=== PATIENT | female | born 1935 | race Caucasian/White ===

== ENCOUNTER 2018-06-06 07:42 | Emergency (ER) | payer MEDICARE, MEDICAID ==
[2018-06-06 07:42] VITALS: BMI 31.8
[2018-06-06 07:51] VITALS: RESP 20
[2018-06-06] MEDS ORDERED: Naproxen 550 mg Tab PO STA (08:18)
[2018-06-06] MEDS ORDERED: Naproxen 550 mg Tab PO ONE (08:31)
--- NOTE | 2018-06-06 08:53 | RAD ---
Date of service: 06/06/2018 PROCEDURE: Radiographs of the Left Forearm HISTORY: LEFT FOREARM PAIN COMPARISON: None available. TECHNIQUE: Frontal and lateral views obtained. FINDINGS: BONES: No fracture or destructive lesion. JOINT SPACES: Minimal arthrosis elbow joint- trace olecranon spurring apparent Radiocarpal joint space narrowing inferred as well OTHER FINDINGS: Well corticated ossifications calcifications inferior to medial humeral epicondyles calcific tendinosis here pad oval with this. Osseous avulsions in the differential. The subcutaneous soft tissues appear slightly more prominent along the medial aspect of the elbow joint clinical correlation needed IMPRESSION: No fracture or lytic lesion. 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
--- NOTE | 2018-06-06 08:54 | RAD ---
PROCEDURE: Left Hand Radiographs. HISTORY: LEFT HAND PAIN COMPARISON: None. FINDINGS: BONES: Normal. No fracture. JOINTS: Diffuse joint space narrowing- distal interphalangeal joints. Mild degenerate changes compatible with this. No erosions or prominent spurs seen. Probable carpal-first metacarpal joint arthrosis as well. SOFT TISSUES: Normal. OTHER FINDINGS: None. IMPRESSION: Mild arthrosis -as detailed above. No fracture, lytic lesion or erosions seen.
--- NOTE | 2018-06-06 09:03 | C.PDOC ---
History Of Present Illness 82-year-old femal presents to the emergency department with complaints of left forearm and left arm pain. She also reports her 4th left digit is stuck in flexion for the past 2-3 days. Patient denies trauma, fever, rash, sensory changes or any other associated symptoms. Time Seen by Provider: 06/06/18 07:58 Chief Complaint (Nursing): Upper Extremity Problem/Injury History Per: Patient History/Exam Limitations: no limitations Current Symptoms Are (Timing): Still Present Quality: "Pain" Severity: Moderate Exacerbating Factor(s): Movement Past Medical History Reviewed: Historical Data, Nursing Documentation, Vital Signs Vital Signs: Last Vital Signs Temp 98.6 F 06/06/18 09:33 Pulse 69 06/06/18 09:33 Resp 20 06/06/18 09:33 BP 133/71 06/06/18 09:33 Pulse Ox 98 06/06/18 13:23 - Medical History PMH: Arthritis, Diverticulitis, Deep Vein Thrombosis (PVD), Gastritis, HTN, Hypercholesterolemia Surgical History: Appendectomy [facility] Procedures CORONAR ARTERIOGR-2 CATH (11/21/14) CORONARY ARTERIOGRAM NEC (11/21/14) INJECT ANTICOAGULANT (11/21/14) INJECT/INFUSE NEC (11/21/14) INSERTION OF ONE VASCULAR STENT (11/21/14) INSRT OF DRUG-ELUTING CORON ARTERY STENTS(S) (11/21/14) LEFT HEART CARDIAC CATH (11/21/14) LT HEART ANGIOCARDIOGRAM (11/21/14) PERCUTANEOUS TRANSLUMINAL CORONARY ANGIOPLASTY [PTCA] (11/21/14) PROCEDURE ON SINGLE VESSEL (11/21/14) Family History: States: No Known Family Hx - Social History Hx Tobacco Use: No Hx Alcohol Use: No Hx Substance Use: No - Immunization History Hx Tetanus Toxoid Vaccination: Yes Hx Influenza Vaccination: Yes (2017) Hx Pneumococcal Vaccination: Yes Review Of Systems Constitutional: Negative for: Fever, Chills Cardiovascular: Negative for: Chest Pain Respiratory: Negative for: Shortness of Breath Gastrointestinal: Negative for: Nausea, Vomiting Musculoskeletal: Positive for: Arm Pain (left) Skin: Negative for: Rash Neurological: Negative for: Weakness, Numbness Physical Exam - Physical Exam Appears: Well, Non-toxic, No Acute Distress Skin: Normal Color, Warm, Dry, No Rash Head: Atraumatic, Normacephalic Eye(s): bilateral: Normal Inspection Oral Mucosa: Moist Cardiovascular: Rhythm Regular Respiratory: Normal Breath Sounds, No Rales, No Rhonchi, No Wheezing Extremity: Capillary Refill (<2 seconds all digits ), No Deformity, No Swelling , Other (Mild tenderness to palpation at left anterior forearm. +palpable ganglion cyst at distal 4th metacarpal, 4th digit in flexion. Normal sensation in hand. No rashes. ) Extremity: Bilateral: Normal Color And Temperature Pulses: Left Radial: Normal, Right Radial: Normal Neurological/Psych: Oriented x3, Normal Sensation Gait: Steady ED Course And Treatment O2 Sat by Pulse Oximetry: 98 (RA) Pulse Ox Interpretation: Normal - Other Rad left hand/forearm Xrays X-Ray: Interpreted by Me, Viewed By Me (arthritic changes, no fx/dislocation) Progress Note: Xrays of left hand and forearm ordered and reviewed. Patient given PO Naprosyn in ED. Reevaluation Time: 09:05 Reassessment Condition: Improved (Patient reassessed, is resting comfortably, pain has improved. Xrays neg for acute bondy injuries. Explained to patient symptoms are likely due to tendonitis/ganglion cyst. She was instructed to follow up with hand surgery/ortho within 1 week. Rx for naprosyn given. She understands she should return to ED if symptoms worsen.) Disposition Counseled Patient/Family Regarding: Studies Performed, Diagnosis, Need For Followup, Rx Given - Disposition Referrals: Emmanuel Birmingham MD [Staff Provider] - [facility] [place] [Outside] Disposition: HOME/ ROUTINE Disposition Time: 09:05 Condition: STABLE Additional Instructions: FOLLOW UP WITH HAND SURGERY/ORTHOPEDICS WITHIN 1 WEEK USE PAIN MEDICATION NEEDED RETURN TO EMERGENCY ROOM IF SYMPTOMS WORSEN SEGUIMIENTO CON CIRUGA DE LA MANO / ORTOPEDIA DENTRO DE 1 SEMANA USE MEDICAMENTO PARA DOLOR SEGN SEA NECESARIO REGRESE AL JOSE DE EMERGENCIA SI LOS SNTOMAS EMPEORAN Prescriptions: Naproxen 375 mg PO BID PRN #20 tablet PRN Reason: pain Instructions: Ganglion Cyst (DC), Trigger Finger (DC) Forms: [employer] (Slovak) Print Language: IRISH - POA Present On Arrival: None - Clinical Impression Clinical Impression: Trigger finger, left ring finger, Ganglion cyst, Tendonitis - Scribe Statement The provider has reviewed the documentation as recorded by the Scribe (Jelani Gonzales) All medical record entries made by the Scribe were at my direction and personally dictated by me. I have reviewed the chart and agree that the record accurately reflects my personal performance of the history, physical exam, medical decision making, and the department course for this patient. I have also personally directed, reviewed, and agree with the discharge instructions and disposition.
[2018-06-06 09:34] VITALS: BP 133/71; PULSE 69; TEMP 98.6
[2018-06-06 09:49] VITALS: O2SAT 98
== END 2018-06-06 09:41 | disposition home or self-care (01) ==
LOC: C.ER 07:42
DX: M77.9 Enthesopathy, unspecified (principal); M67.442 Ganglion, left hand; M65.342 Trigger finger, left ring finger

== ENCOUNTER 2018-12-11 19:45 | Inpatient (IN) | payer MEDICARE, MEDICAID ==
[2018-12-11 19:46] VITALS: BMI 31.8
[2018-12-11] MEDS ORDERED: Sodium Chloride 0.9% 1,000 ML IV ONE (20:13)
--- NOTE | 2018-12-11 20:13 | C.PDOC ---
History Of Present Illness 83 year old female presents to the ED c/o elevated blood sugar, polyuria and polydipsia for the past 3 weeks. Patient reports she is not taking any diabetic medications now. Patient denies fever, chills, nausea, vomit, diarrhea, CP, SOB, rash, weakness, numbness. Time Seen by Provider: 12/11/18 20:12 Chief Complaint (Nursing): High Blood Sugar History Per: Patient History/Exam Limitations: no limitations Onset/Duration Of Symptoms: Days Current Symptoms Are (Timing): Still Present Severity: Moderate Pain Scale Rating Of: 4 Current Diabetic Medications: None Associated Infectious Symptoms: Urinary Frequency Treatment Prior To Provider Evaluation: None Recent travel outside of the [place]: No Additional History Per: Patient Past Medical History Reviewed: Historical Data, Nursing Documentation, Vital Signs Vital Signs: Last Vital Signs Temp 97.9 F 12/11/18 19:58 Pulse 92 H 12/11/18 19:58 Resp 20 12/11/18 19:58 BP 145/68 12/11/18 19:58 Pulse Ox 99 12/11/18 19:58 - Medical History PMH: Arthritis, Diverticulitis, Deep Vein Thrombosis (PVD), Gastritis, HTN, Hypercholesterolemia Surgical History: Appendectomy - [facility] Procedures CORONAR ARTERIOGR-2 CATH (11/21/14) CORONARY ARTERIOGRAM NEC (11/21/14) INJECT ANTICOAGULANT (11/21/14) INJECT/INFUSE NEC (11/21/14) INSERTION OF ONE VASCULAR STENT (11/21/14) INSRT OF DRUG-ELUTING CORON ARTERY STENTS(S) (11/21/14) LEFT HEART CARDIAC CATH (11/21/14) LT HEART ANGIOCARDIOGRAM (11/21/14) PERCUTANEOUS TRANSLUMINAL CORONARY ANGIOPLASTY [PTCA] (11/21/14) PROCEDURE ON SINGLE VESSEL (11/21/14) Family History: States: Unknown Family Hx - Social History Hx Tobacco Use: No Hx Alcohol Use: No Hx Substance Use: No - Immunization History Hx Tetanus Toxoid Vaccination: Yes Hx Influenza Vaccination: Yes (2016) Hx Pneumococcal Vaccination: Yes Review Of Systems Constitutional: Negative for: Fever, Chills Eyes: Negative for: Redness ENT: Negative for: Throat Pain Cardiovascular: Negative for: Chest Pain Respiratory: Negative for: Cough, Shortness of Breath Gastrointestinal: Negative for: Nausea, Vomiting, Abdominal Pain Genitourinary: Positive for: Frequency Musculoskeletal: Negative for: Back Pain Skin: Negative for: Rash Neurological: Negative for: Weakness, Numbness, Headache, Dizziness Psych: Negative for: Anxiety Physical Exam - Physical Exam Appears: Non-toxic, No Acute Distress Skin: Warm, Dry Head: Normacephalic Eye(s): bilateral: Normal Inspection Oral Mucosa: Dry Neck: Supple Chest: Symmetrical Cardiovascular: Rhythm Regular Respiratory: No Rales, No Rhonchi, No Wheezing Gastrointestinal/Abdominal: Soft, Tenderness (slight LUQ discomfort), Distention, No Guarding, No Rebound Back: No CVA Tenderness Extremity: Pedal Edema (trace bilaterally), Capillary Refill (< 2 seconds) Extremity: Bilateral: Atraumatic, Normal Color And Temperature, Normal ROM Pulses: Left Dorsalis Pedis: Normal, Right Dorsalis Pedis: Normal Neurological/Psych: Oriented x3 Gait: Steady ED Course And Treatment - Laboratory Results Result Diagrams: 12/11/18 20:40 12/11/18 20:40 ECG: Interpreted By Me, Viewed By Me O2 Sat by Pulse Oximetry: 99 (ON RA) Pulse Ox Interpretation: Normal Progress Note: Plan: - Labs. - VBG. - IV fluids. - UA Disposition Discussed With DrBret: Lola Reyes Comment: accepted the pt on his service and took over the care at 9:58 PM Doctor Will See Patient In The: Hospital Counseled Patient/Family Regarding: Studies Performed, Diagnosis - Disposition Disposition: HOSPITALIZED Disposition Time: 20:13 Condition: FAIR Forms: [facility] (Portuguese) - POA Present On Arrival: Poor Glycemic Control - Clinical Impression Clinical Impression: Hyperglycemia, Urinary tract infection, Poorly controlled diabetes mellitus - Scribe Statement The provider has reviewed the documentation as recorded by the Scribe Sukh Gonzales All medical record entries made by the Scribe were at my direction and personally dictated by me. I have reviewed the chart and agree that the record accurately reflects my personal performance of the history, physical exam, medi brian decision making, and the department course for this patient. I have also personally directed, reviewed, and agree with the discharge instructions and disposition. Decision To Admit - Pt Status Changed To: Hospital Disposition Of: Inpatient - Admit Certification Admit to Inpatient:: After my assessment, the patient will require hospitalization for at least two midnights. This is because of the severity of symptoms shown, intensity of services needed, and/or the medical risk in this patient being treated as an outpatient. - InPatient: Physician Admission Certification: I certify that this patient requires 2 or more midnights of care for the following reason:: After my assessment, the patient will require hospitalization for at least two midnights. This is because of the severity of symptoms shown, intensity of services needed, and/or the medical risk in this patient being treated as an outpatient. - . Bed Request Type: Regular Admitting Physician: Lola Reyes Patient Diagnosis: Hyperglycemia, Urinary tract infection, Poorly controlled diabetes mellitus
[2018-12-11 20:48] LABS: BASO # 0.1 K/uL (0.0-0.2); EOS # 0.2 K/uL (0.0-0.7); EOS % 2.6 % (0.0-4.0); HEMOGLOBIN 12.3 g/dL (11.0-16.0); LYMPH # 2.9 K/uL (1.0-4.3); LYMPH % 38.7 % (20.0-40.0); MEAN CELL VOLUME 87.7 fL (81.0-99.0); MEAN CORPUSCULAR HEMOGLOBIN 28.1 pg (27.0-31.0); MEAN PLATELET VOLUME 8.4 fL (7.2-11.7); MONO # 0.8 K/uL (0.0-0.8); MONO % 10.6 % (0.0-10.0); NEUT # 3.6 K/uL (1.8-7.0); NEUT % 47.1 % (50.0-75.0); NRBC % 0.1 % (0.0-2.0); RBC 4.38 Mil/uL (3.80-5.20); RED CELL DISTRIBUTION WIDTH 12.1 % (11.5-14.5); WHITE BLOOD COUNT 7.6 K/uL (4.8-10.8)
[2018-12-11 20:49] LABS: VENOUS BLOOD GAS BASE EXCESS -7.9 mmol/L (0.0-2.0); VENOUS BLOOD GAS PCO2 39 mmHg (40-60); VENOUS BLOOD GAS PO2 102 mm/Hg (30-55); VENOUS BLOOD PH 7.28 (7.32-7.43)
[2018-12-11 21:08] LABS: SQUAMOUS EPITHIAL 2 /hpf (0-5); URINE BACTERIA FEW (<OCC); URINE BILIRUBIN NEGATIVE (NEGATIVE); URINE BLOOD NEGATIVE (NEGATIVE); URINE CLARITY Hazy (Clear); URINE COLOR Yellow (YELLOW); URINE GLUCOSE (UA) 3+ mg/dL (Normal); URINE LEUKOCYTE ESTERASE 1+ Leu/uL (Negative); URINE PROTEIN NEGATIVE (NEGATIVE); URINE UROBILINOGEN NORMAL mg/dL (0.2-1.0)
[2018-12-11 21:21] LABS: ALB/GLOB RATIO 1.3 (1.0-2.1); ALBUMIN 4.3 g/dL (3.5-5.0); CALCIUM 9.6 mg/dl (8.6-10.4)
[2018-12-11] MEDS: (Lantus) Insulin Glargine, Recombinant SC SCH (22:18)
[2018-12-11] MEDS ORDERED: (Lantus) Insulin Glargine, Recombinant SC ONE (22:21)
[2018-12-11] MEDS ORDERED: (Novolin R) Insulin Human Regular 100 units/ml vial ONE (22:31)
[2018-12-11] MEDS: (Novolin R) Insulin Human Regular 100 units/ml vial SC SCH (22:31)
--- NOTE | 2018-12-11 22:36 | CP.PCM.HP ---
Past Patient History - Past Medical History & Family History Past Medical History?: Yes - Past Social History Smoking Status: Never Smoked - CARDIAC Hx Hypercholesterolemia: Yes Hx Hypertension: Yes - PULMONARY Hx Respiratory Disorders: Yes Other/Comment: H/O SOB - NEUROLOGICAL Hx Dizziness: Yes (OCCASIONALLY) - HEENT Hx Glaucoma: Yes (BILATERAL) - MUSCULOSKELETAL/RHEUMATOLOGICAL Hx Arthritis: Yes - GASTROINTESTINAL Hx Diverticulitis: Yes Hx Gastritis: Yes - PSYCHIATRIC Hx Substance Use: No - SURGICAL HISTORY Hx Appendectomy: Yes - ANESTHESIA Hx Anesthesia: Yes Hx Anesthesia Reactions: No Hx Malignant Hyperthermia: No Meds Allergies/Adverse Reactions: Allergies Allergy/AdvReac Type Severity Reaction Status Date / Time No Known Allergies Allergy Verified 12/11/18 20:03 Results - Vital Signs Recent Vital Signs: Last Vital Signs Temp 97.9 F 12/11/18 19:58 Pulse 92 H 12/11/18 19:58 Resp 20 12/11/18 19:58 BP 145/68 12/11/18 19:58 Pulse Ox 99 12/11/18 22:00 - Labs Result Diagrams: 12/11/18 20:40 12/11/18 20:40 Labs: Laboratory Results - last 24 hr 12/11/18 12/11/18 12/11/18 19:57 20:35 20:40 WBC 7.6 RBC 4.38 Hgb 12.3 Hct 38.4 MCV 87.7 D MCH 28.1 MCHC 32.0 L RDW 12.1 Plt Count 201 MPV 8.4 Neut % (Auto) 47.1 L Lymph % (Auto) 38.7 [place] % (Auto) 10.6 H Eos % (Auto) 2.6 Baso % (Auto) 1.0 Neut # (Auto) 3.6 Lymph # (Auto) 2.9 [place] # (Auto) 0.8 Eos # (Auto) 0.2 Baso # (Auto) 0.1 pO2 102 H VBG pH 7.28 L VBG pCO2 39 L VBG HCO3 18.8 VBG Total CO2 19.5 L VBG O2 Sat (Calc) 99.7 H VBG Base Excess -7.9 L VBG Potassium 3.0 L Sodium 145.0 Chloride 112.0 H Glucose 290 H Lactate 3.0 H Potassium Carbon Dioxide Anion Gap BUN Creatinine Est GFR ( Amer) Est GFR (Non-Af Amer) POC Glucose (mg/dL) 460 H* Random Glucose Hemoglobin A1c Calcium Total Bilirubin AST ALT Alkaline Phosphatase Total Protein Albumin Globulin Albumin/Globulin Ratio Venous Blood Potassium 3.0 L Urine Color Urine Clarity Urine pH Ur Specific [place] Urine Protein Urine Glucose (UA) Urine Ketones Urine Blood Urine Nitrate Urine Bilirubin Urine Urobilinogen Ur Leukocyte Esterase Urine WBC (Auto) Urine RBC (Auto) Ur Squamous Epith Cells Urine Bacteria B-Hydroxybutyrate 12/11/18 12/11/18 12/11/18 20:40 20:40 20:46 WBC RBC Hgb Hct MCV MCH MCHC RDW Plt Count MPV Neut % (Auto) Lymph % (Auto) [place] % (Auto) Eos % (Auto) Baso % (Auto) Neut # (Auto) Lymph # (Auto) [place] # (Auto) Eos # (Auto) Baso # (Auto) pO2 VBG pH VBG pCO2 VBG HCO3 VBG Total CO2 VBG O2 Sat (Calc) VBG Base Excess VBG Potassium Sodium 133 Chloride 94 L Glucose Lactate Potassium 5.2 Carbon Dioxide 29 Anion Gap 15 BUN 34 H Creatinine 2.2 H Est GFR ( Amer) 26 Est GFR (Non-Af Amer) 21 POC Glucose (mg/dL) Random Glucose 456 H* D Hemoglobin A1c 12.5 H Calcium 9.6 Total Bilirubin 0.7 AST 40 H ALT 31 Alkaline Phosphatase 75 Total Protein 7.7 Albumin 4.3 Globulin 3.4 Albumin/Globulin Ratio 1.3 Venous Blood Potassium Urine Color Yellow Urine Clarity Hazy Urine pH 5.0 Ur Specific [place] 1.024 Urine Protein Negative Urine Glucose (UA) 3+ H Urine Ketones Negative Urine Blood Negative Urine Nitrate Negative Urine Bilirubin Negative Urine Urobilinogen Normal Ur Leukocyte Esterase 1+ H Urine WBC (Auto) 40 H Urine RBC (Auto) 3 Ur Squamous Epith Cells 2 Urine Bacteria Few H B-Hydroxybutyrate 0.27 12/11/18 22:18 WBC RBC Hgb Hct MCV MCH MCHC RDW Plt Count MPV Neut % (Auto) Lymph % (Auto) [place] % (Auto) Eos % (Auto) Baso % (Auto) Neut # (Auto) Lymph # (Auto) [place] # (Auto) Eos # (Auto) Baso # (Auto) pO2 VBG pH VBG pCO2 VBG HCO3 VBG Total CO2 VBG O2 Sat (Calc) VBG Base Excess VBG Potassium Sodium Chloride Glucose Lactate Potassium Carbon Dioxide Anion Gap BUN Creatinine Est GFR ( Amer) Est GFR (Non-Af Amer) POC Glucose (mg/dL) 395 H Random Glucose Hemoglobin A1c Calcium Total Bilirubin AST ALT Alkaline Phosphatase Total Protein Albumin Globulin Albumin/Globulin Ratio Venous Blood Potassium Urine Color Urine Clarity Urine pH Ur Specific [place] Urine Protein Urine Glucose (UA) Urine Ketones Urine Blood Urine Nitrate Urine Bilirubin Urine Urobilinogen Ur Leukocyte Esterase Urine WBC (Auto) Urine RBC (Auto) Ur Squamous Epith Cells Urine Bacteria B-Hydroxybutyrate
[2018-12-11] MEDS: Sodium Chloride 0.9% 1,000 ML IV SCH (23:00)
[2018-12-12] MEDS ORDERED: Moxifloxacin IV 400mg/250ml NS 400 MG/250 ML BAG IVPB SCH (10:00)
[2018-12-12] MEDS ORDERED: Enoxaparin 40 mg Syringe SC SCH (10:00)
[2018-12-12] MEDS ORDERED: Pantoprazole 40 mg EC Tab PO SCH (10:00)
[2018-12-12 11:50] VITALS: RESP 20
[2018-12-12] MEDS: (Novolin R) Insulin Human Regular 100 units/ml vial SC SCH ×3 (12:13→21:39)
[2018-12-12] MEDS: Moxifloxacin IV 400mg/250ml NS 400 MG/250 ML BAG IVPB SCH (12:23)
[2018-12-12] MEDS: Enoxaparin 30 mg Syringe SC SCH (12:29)
--- NOTE | 2018-12-12 14:22 | CP.PCM.PN ---
Subjective - Date & Time of Evaluation Date of Evaluation: 12/12/18 Time of Evaluation: 09:15 - Subjective Subjective: clinically same Objective - Vital Signs/Intake and Output Vital Signs (last 24 hours): Temp Pulse Resp BP Pulse Ox 97.7 F 76 20 162/74 H 95 12/12/18 11:50 12/12/18 11:50 12/12/18 11:50 12/12/18 11:50 12/12/18 11:50 - Medications Medications: Current Medications Enoxaparin Sodium (Lovenox) 30 mg SC DAILY [facility] Last Admin: 12/12/18 12:29 Dose: 30 mg Glimepiride (Amaryl) 2 mg PO BID [facility] Sodium Chloride (Sodium Chloride 0.9%) 1,000 mls @ 100 mls/hr IV .Q10H [facility] Last Admin: 12/11/18 23:00 Dose: 100 mls/hr Moxifloxacin HCl (Avelox Iv 400mg/250ml Ns) 400 mg in 250 mls @ 167 mls/hr IVPB Q24H [facility]; Protocol Last Admin: 12/12/18 12:23 Dose: 167 mls/hr Insulin Glargine (Lantus) 20 unit SC HS [facility] Last Admin: 12/11/18 22:18 Dose: 20 units Insulin Human Regular (Novolin R) 0 unit SC ACHS [facility]; Protocol Last Admin: 12/12/18 12:13 Dose: 8 units Pantoprazole Sodium (Protonix Ec Tab) 40 mg PO DAILY [facility] Last Admin: 12/12/18 12:28 Dose: 40 mg - Labs Labs: 12/11/18 20:40 12/11/18 20:40 - Constitutional Appears: Well - Head Exam Head Exam: ATRAUMATIC, NORMAL INSPECTION, NORMOCEPHALIC - Eye Exam Eye Exam: EOMI, Normal appearance, PERRL Pupil Exam: NORMAL ACCOMODATION, PERRL - ENT Exam ENT Exam: Mucous Membranes Moist, Normal Exam - Neck Exam Neck Exam: Full ROM, Normal Inspection. absent: Lymphadenopathy - Respiratory Exam Respiratory Exam: Decreased Breath Sounds - Cardiovascular Exam Cardiovascular Exam: REGULAR RHYTHM, +S1, +S2 - GI/Abdominal Exam GI & Abdominal Exam: Soft, Diminished Bowel Sounds - Rectal Exam Rectal Exam: Deferred
[2018-12-12] MEDS: Sodium Chloride 0.9% 1,000 ML IV SCH ×2 (18:15→20:40)
[2018-12-12] MEDS: (Lantus) Insulin Glargine, Recombinant SC SCH (21:39)
[2018-12-13] MEDS: Sodium Chloride 0.9% 1,000 ML IV SCH ×3 (04:15→23:30)
[2018-12-13] MEDS: (Novolin R) Insulin Human Regular 100 units/ml vial SC SCH ×4 (07:46→22:19)
[2018-12-13 08:26] LABS: BASO # 0.1 K/uL (0.0-0.2); BASO % 0.8 % (0.0-2.0); EOS # 0.3 K/uL (0.0-0.7); EOS % 3.4 % (0.0-4.0); HEMOGLOBIN 11.4 g/dL (11.0-16.0); LYMPH # 4.7 K/uL (1.0-4.3); LYMPH % 55.7 % (20.0-40.0); MEAN CELL VOLUME 87.6 fL (81.0-99.0); MEAN CORPUSCULAR HEMOGLOBIN 28.2 pg (27.0-31.0); MEAN CORPUSCULAR HGB CONC 32.2 g/dL (33.0-37.0); MEAN PLATELET VOLUME 8.9 fL (7.2-11.7); MONO # 0.8 K/uL (0.0-0.8); MONO % 9.7 % (0.0-10.0); NEUT # 2.5 K/uL (1.8-7.0); NEUT % 30.4 % (50.0-75.0); NRBC % 0.1 % (0.0-2.0); RBC 4.05 Mil/uL (3.80-5.20); RED CELL DISTRIBUTION WIDTH 12.3 % (11.5-14.5); WHITE BLOOD COUNT 8.4 K/uL (4.8-10.8)
[2018-12-13 08:46] LABS: CALCIUM 8.1 mg/dl (8.6-10.4)
[2018-12-13] MEDS ORDERED: Ergocalciferol 50,000 Intl Units Cap PO SCH (10:00)
[2018-12-13] MEDS: Enoxaparin 30 mg Syringe SC SCH (10:04)
[2018-12-13] MEDS: Moxifloxacin IV 400mg/250ml NS 400 MG/250 ML BAG IVPB SCH (12:15)
[2018-12-13] MEDS ORDERED: Naproxen 275 mg Tab PO ONE (17:38)
--- NOTE | 2018-12-13 18:11 | CP.PCM.PN ---
Subjective - Date & Time of Evaluation Date of Evaluation: 12/13/18 Time of Evaluation: 09:15 - Subjective Subjective: clinically same Objective - Vital Signs/Intake and Output Vital Signs (last 24 hours): Temp Pulse Resp BP Pulse Ox 98.3 F 75 20 144/68 98 12/13/18 16:00 12/13/18 16:00 12/13/18 16:00 12/13/18 16:00 12/13/18 16:00 Intake and Output: 12/13/18 12/13/18 06:59 18:59 Intake Total 2119 1100 Balance 2119 1100 - Medications Medications: Current Medications Clopidogrel Bisulfate (Plavix) 75 mg PO DAILY [facility] Last Admin: 12/13/18 10:04 Dose: 75 mg Enoxaparin Sodium (Lovenox) 30 mg SC DAILY [facility] Last Admin: 12/13/18 10:04 Dose: 30 mg Ergocalciferol (Drisdol 50,000 Intl Units Cap) 1 cap PO QWK [facility] Last Admin: 12/13/18 10:03 Dose: 1 cap Famotidine (Pepcid) 20 mg PO DAILY [facility] Last Admin: 12/13/18 10:03 Dose: 20 mg Glimepiride (Amaryl) 2 mg PO BID [facility] Last Admin: 12/13/18 17:33 Dose: 2 mg Sodium Chloride (Sodium Chloride 0.9%) 1,000 mls @ 100 mls/hr IV .Q10H [facility] Last Admin: 12/13/18 10:07 Dose: 100 mls/hr Moxifloxacin HCl (Avelox Iv 400mg/250ml Ns) 400 mg in 250 mls @ 167 mls/hr IVPB Q24H [facility]; Protocol Last Admin: 12/13/18 12:15 Dose: 167 mls/hr Insulin Glargine (Lantus) 20 unit SC HS [facility] Last Admin: 12/12/18 21:39 Dose: 20 units Insulin Human Regular (Novolin R) 0 unit SC ACHS [facility]; Protocol Last Admin: 12/13/18 17:40 Dose: 4 units Lisinopril (Zestril) 10 mg PO DAILY [facility] Last Admin: 12/13/18 10:03 Dose: 10 mg - Labs Labs: 12/13/18 08:18 12/13/18 08:18 - Constitutional Appears: Well - Head Exam Head Exam: ATRAUMATIC, NORMAL INSPECTION, NORMOCEPHALIC - Eye Exam Eye Exam: EOMI, Normal appearance, PERRL Pupil Exam: NORMAL ACCOMODATION, PERRL - ENT Exam ENT Exam: Mucous Membranes Moist, Normal Exam - Neck Exam Neck Exam: Full ROM, Normal Inspection. absent: Lymphadenopathy - Respiratory Exam Respiratory Exam: Decreased Breath Sounds - Cardiovascular Exam Cardiovascular Exam: REGULAR RHYTHM, +S1, +S2 - GI/Abdominal Exam GI & Abdominal Exam: Soft, Diminished Bowel Sounds - Rectal Exam Rectal Exam: Deferred
[2018-12-13] MEDS: (Lantus) Insulin Glargine, Recombinant SC SCH (22:17)
[2018-12-14] MEDS: Sodium Chloride 0.9% 1,000 ML IV SCH ×2 (00:42→12:09)
[2018-12-14] MEDS: (Novolin R) Insulin Human Regular 100 units/ml vial SC SCH ×2 (07:42→11:23)
[2018-12-14 07:58] VITALS: TEMP 97.8
[2018-12-14] MEDS: Enoxaparin 30 mg Syringe SC SCH (09:09)
[2018-12-14] MEDS: Moxifloxacin IV 400mg/250ml NS 400 MG/250 ML BAG IVPB SCH (11:35)
--- NOTE | 2018-12-14 12:51 | CP.PCM.PN ---
Subjective - Date & Time of Evaluation Date of Evaluation: 12/14/18 Time of Evaluation: 08:45 - Subjective Subjective: clinically same Objective - Vital Signs/Intake and Output Vital Signs (last 24 hours): Temp Pulse Resp BP Pulse Ox 97.8 F 72 20 164/75 H 97 12/14/18 07:55 12/14/18 07:55 12/14/18 07:55 12/14/18 07:55 12/14/18 07:55 Intake and Output: 12/14/18 12/14/18 06:59 18:59 Intake Total 2070 Output Total 500 Balance 1570 - Medications Medications: Current Medications Clopidogrel Bisulfate (Plavix) 75 mg PO DAILY [facility] Last Admin: 12/14/18 09:09 Dose: 75 mg Enoxaparin Sodium (Lovenox) 30 mg SC DAILY [facility] Last Admin: 12/14/18 09:09 Dose: 30 mg Ergocalciferol (Drisdol 50,000 Intl Units Cap) 1 cap PO QWK [facility] Last Admin: 12/13/18 10:03 Dose: 1 cap Famotidine (Pepcid) 20 mg PO DAILY [facility] Last Admin: 12/14/18 09:09 Dose: 20 mg Glimepiride (Amaryl) 2 mg PO BID [facility] Last Admin: 12/14/18 09:09 Dose: 2 mg Sodium Chloride (Sodium Chloride 0.9%) 1,000 mls @ 100 mls/hr IV .Q10H [facility] Last Admin: 12/14/18 12:09 Dose: Not Given Moxifloxacin HCl (Avelox Iv 400mg/250ml Ns) 400 mg in 250 mls @ 167 mls/hr IVPB Q24H [facility]; Protocol Last Admin: 12/14/18 11:35 Dose: 167 mls/hr Insulin Glargine (Lantus) 20 unit SC HS [facility] Last Admin: 12/13/18 22:17 Dose: 20 units Insulin Human Regular (Novolin R) 0 unit SC ACHS [facility]; Protocol Last Admin: 12/14/18 11:23 Dose: 8 units Lisinopril (Zestril) 10 mg PO DAILY [facility] Last Admin: 12/14/18 09:09 Dose: 10 mg - Labs Labs: 12/13/18 08:18 12/13/18 08:18
--- NOTE | 2018-12-14 16:47 | CP.PCM.PN ---
Subjective - Date & Time of Evaluation Date of Evaluation: 12/14/18 Time of Evaluation: 16:47 - Subjective Subjective: alert, awake, no sob no acute distress. Objective - Vital Signs/Intake and Output Vital Signs (last 24 hours): Temp Pulse Resp BP Pulse Ox 97.8 F 72 20 164/75 H 97 12/14/18 07:55 12/14/18 07:55 12/14/18 07:55 12/14/18 07:55 12/14/18 07:55 Intake and Output: 12/14/18 12/14/18 06:59 18:59 Intake Total 2070 1280 Output Total 500 Balance 1570 1280 - Medications Medications: Current Medications Ciprofloxacin (Cipro) 500 mg PO BID [facility]; Protocol Clopidogrel Bisulfate (Plavix) 75 mg PO DAILY [facility] Last Admin: 12/14/18 09:09 Dose: 75 mg Enoxaparin Sodium (Lovenox) 30 mg SC DAILY [facility] Last Admin: 12/14/18 09:09 Dose: 30 mg Ergocalciferol (Drisdol 50,000 Intl Units Cap) 1 cap PO QWK [facility] Last Admin: 12/13/18 10:03 Dose: 1 cap Famotidine (Pepcid) 20 mg PO DAILY [facility] Last Admin: 12/14/18 09:09 Dose: 20 mg Glimepiride (Amaryl) 2 mg PO BID [facility] Last Admin: 12/14/18 09:09 Dose: 2 mg Insulin Glargine (Lantus) 10 unit SC HS [facility] Insulin Human Regular (Novolin R) 0 unit SC ACHS [facility]; Protocol Last Admin: 12/14/18 11:23 Dose: 8 units Lisinopril (Zestril) 10 mg PO DAILY [facility] Last Admin: 12/14/18 09:09 Dose: 10 mg Sitagliptin Phosphate (Januvia) 50 mg PO DAILY [facility] - Labs Labs: 12/13/18 08:18 12/13/18 08:18 Assessment and Plan - Assessment and Plan (Free Text) Assessment: 83 year old female admitted with newly diagnosed diabetes. Seen and examined, alert, ambulatory with assistance, no acute distress. Diabetic teaching given to the family, discussed with DR Abril Reyes, plan to discharge home in am on glimiperide and januvia. Glucometer and preescriptions given, advised blood sugar check bid and follow up with PMD in 1 week.
[2018-12-14 17:37] VITALS: BP 142/71; PULSE 67; O2SAT 96
[2018-12-14] MEDS ORDERED: (Lantus) Insulin Glargine, Recombinant SC SCH (22:00)
== END 2018-12-14 18:24 | disposition home or self-care (01) | DRG 638 ==
LOC: C.ER 19:45 → C.9E 21:57 → C.3T 12-12 10:43
PROVIDERS: ADMIT Internal Medicine Nephrology; ATTEND Internal Medicine Nephrology
DX: E11.65 Type 2 diabetes mellitus with hyperglycemia (principal); N39.0 Urinary tract infection, site not specified; E78.00 Pure hypercholesterolemia, unspecified; E11.51 Type 2 diabetes mellitus with diabetic peripheral angiopathy without gangrene; I10 Essential (primary) hypertension; M19.90 Unspecified osteoarthritis, unspecified site